=== PATIENT | female | born 1995 | race Hispanic/Latino ===

== ENCOUNTER 2018-02-24 11:09 | Outpatient (CLI) | payer SELFPAY ==
[2018-02-24 12:31] LABS: APPEARANCE, URINE CLOUDY (CLEAR); BACTERIA, URINE AUTO 1+ (NEGATIVE); BILIRUBIN, URINE AUTO NEGATIVE (NEGATIVE); BLOOD, URINE BLOOD 3+ (NEGATIVE); COLOR, URINE YELLOW (YELLOW); GLUCOSE, URINE (UA) AUTO NEGATIVE (NEGATIVE); KETONE, URINE AUTO NEGATIVE (NEGATIVE); LEUKOCYTE ESTERASE, URINE AUTO 3+ (NEGATIVE); MUCUS, URINE SMALL (NEGATIVE); NITRITE, URINE AUTO NEGATIVE (NEGATIVE); PROTEIN, URINE AUTO 1+ mg/dL (NEGATIVE); RBC, URINE AUTO TNTC /HPF (0-3); SQUAMOUS EPITHELIAL CELL UR AU 0 /HPF (0-6); UROBILINOGEN, URINE AUTO 0.2 mg/dL (0.0-2.0); WBC, URINE AUTO TNTC /HPF (0-3)
[2018-02-24] MEDS ORDERED: LR 1,000 ML IV (13:00)
[2018-02-24] MEDS: NITROFURANTOIN (MACROBID) 100 MG CAP PO (13:49)
[2018-02-24] MEDS: LR 1,000 ML IV (13:49)
== END 2018-02-24 14:05 | disposition home or self-care (01) ==
LOC: M LDO 11:09
DX: O99.89 Other specified diseases and conditions complicating pregnancy, childbirth and the puerperium (principal); Z3A.26 26 weeks gestation of pregnancy; O23.42 Unspecified infection of urinary tract in pregnancy, second trimester
CPT/HCPCS: 59025

== ENCOUNTER 2018-05-22 04:06 | Inpatient (IN) | payer OTHER ==
[2018-05-22 05:35] LABS: HEMATOCRIT 31.9 % (36.0-47.0); HEMOGLOBIN 11.2 g/dl (12.0-15.5); MEAN CORPUSCULAR HEMOGLOBIN 30.8 pg (27.0-33.0); MEAN CORPUSCULAR HGB CONC 35.1 g/dl (32.0-36.5); MEAN CORPUSCULAR VOLUME 87.6 fl (80.0-96.0); PLATELET COUNT, AUTOMATED 107 10^3/uL (150-450); RED BLOOD COUNT 3.64 10^6/uL (4.00-5.40); RED CELL DISTRIBUTION WIDTH 13.2 % (11.5-14.5); WHITE BLOOD COUNT 8.5 10^3/uL (4.0-10.0)
[2018-05-22 05:45] LABS: CREATININE,RANDOM URINE 35.8 MG/DL
[2018-05-22 05:58] LABS: ALT/SGPT 19 U/L (12-78); AST/SGOT 19 U/L (7-37); BILIRUBIN,TOTAL 0.5 MG/DL (0.2-1.0); CREATININE FOR GFR 0.53 MG/DL (0.55-1.30); GLOMERULAR FILTRATION RATE > 60.0 (>60); LDH LACTATE DEHYDROGENASE 171 U/L (84-246); URIC ACID 4.2 MG/DL (2.6-6.0)
[2018-05-22] MEDS ORDERED: MAGNESIUM *L&D* 4 GM/100 ML BAG (40MG/ML) (J3475) As Ordered (06:35)
[2018-05-22] MEDS ORDERED: MAGNESIUM SULFATE 4% INJ 20GM/500ML (40MG/ML) (J3475) As Ordered (06:35)
[2018-05-22] MEDS: LACTATED RINGER'S 1000 ML IV (06:45)
[2018-05-22] MEDS: MAGNESIUM *L&D* 4 GM/100 ML BAG (40MG/ML) (J3475) IV (06:48)
[2018-05-22] MEDS: MAG Sulf (OBGYN) 20GM/500ML 20,000 MG in APPROPRIATE DILUENT 1 EA IV ×2 (07:11→16:17)
[2018-05-22] MEDS: OXYTOCIN DRIP 30 UNITS in APPROPRIATE DILUENT 1 EA IV ×2 (07:20→21:38)
[2018-05-22] MEDS: LR 1,000 ML IV (14:58)
[2018-05-22] MEDS: NALBUPHINE HCL 10 MG/ML AMP (J2300) IV (16:10)
[2018-05-22] MEDS: PROMETHAZINE INJ 25 MG/ML VIAL (J2550) IV (16:10)
[2018-05-22] MEDS: NALBUPHINE HCL 10 MG/ML AMP (J2300) IM (16:11)
[2018-05-22] MEDS ORDERED: OXYTOCIN 30 UNITS IN 0.9% NaCl 500ML IV BAG (J2590) As Ordered (21:39)
[2018-05-22] MEDS: LIDOCAINE 1% MDV 20ML VIAL INFIL (21:45)
[2018-05-22] MEDS ORDERED: DIBUCAINE 1% OINTMENT 30GM TOP (21:45)
[2018-05-22] MEDS ORDERED: CALCIUM GLUCONATE 1,000 MG in D5W MINI-BAG PLUS 100 ML IV (21:45)
[2018-05-22] MEDS ORDERED: RHOGAM 300 MCG (1500 IU) INJ (J2790) IM (21:45)
[2018-05-22] MEDS ORDERED: MEASLES,MUMPS,RUBELLA VACCINE INJ (MMR-II) (90707) SC (21:45)
[2018-05-22] MEDS ORDERED: METOCLOPRAMIDE INJ 10MG/2ML VIAL (J2765) IV (21:45)
[2018-05-22] MEDS ORDERED: ACETAMINOPHEN TAB 650MG DOSE (2X325MG) PO (21:45)
[2018-05-22 22:31] LABS: HEMATOCRIT 33.4 % (36.0-47.0); HEMOGLOBIN 11.3 g/dl (12.0-15.5); MEAN CORPUSCULAR HEMOGLOBIN 30.6 pg (27.0-33.0); MEAN CORPUSCULAR HGB CONC 33.8 g/dl (32.0-36.5); MEAN CORPUSCULAR VOLUME 90.5 fl (80.0-96.0); PLATELET COUNT, AUTOMATED 115 10^3/uL (150-450); RED BLOOD COUNT 3.69 10^6/uL (4.00-5.40); RED CELL DISTRIBUTION WIDTH 13.4 % (11.5-14.5); WHITE BLOOD COUNT 14.6 10^3/uL (4.0-10.0)
[2018-05-23] MEDS: MAG Sulf (OBGYN) 20GM/500ML 20,000 MG in APPROPRIATE DILUENT 1 EA IV ×3 (03:17→15:28)
[2018-05-23] MEDS: OXYTOCIN DRIP 30 UNITS in APPROPRIATE DILUENT 1 EA IV (04:09)
[2018-05-23] MEDS: PRENATAL VITAMINS CHEWABLE TABLET PO (09:00)
[2018-05-23] MEDS: DOCUSATE SODIUM 100 MG CAP PO ×2 (09:00→23:07)
[2018-05-23 10:36] LABS: HEMATOCRIT 28.1 % (36.0-47.0); HEMOGLOBIN 9.7 g/dl (12.0-15.5); MEAN CORPUSCULAR HEMOGLOBIN 30.9 pg (27.0-33.0); MEAN CORPUSCULAR HGB CONC 34.5 g/dl (32.0-36.5); MEAN CORPUSCULAR VOLUME 89.5 fl (80.0-96.0); PLATELET COUNT, AUTOMATED 122 10^3/uL (150-450); RED BLOOD COUNT 3.14 10^6/uL (4.00-5.40); RED CELL DISTRIBUTION WIDTH 13.6 % (11.5-14.5); WHITE BLOOD COUNT 12.3 10^3/uL (4.0-10.0)
[2018-05-23 10:55] LABS: ALBUMIN 1.8 GM/DL (3.2-5.2); ALKALINE PHOSPHATASE 201 U/L (45-117); ALT/SGPT 19 U/L (12-78); ANION GAP 11 MEQ/L (8-16); AST/SGOT 28 U/L (7-37); BILIRUBIN,TOTAL 0.4 MG/DL (0.2-1.0); BLOOD UREA NITROGEN 10 MG/DL (7-18); CALCIUM LEVEL 6.9 MG/DL (8.5-10.1); CARBON DIOXIDE LEVEL 22 MEQ/L (21-32); CHLORIDE LEVEL 108 MEQ/L (98-107); CREATININE FOR GFR 0.84 MG/DL (0.55-1.30); GLUCOSE, FASTING 108 MG/DL (70-100); POTASSIUM SERUM 3.7 MEQ/L (3.5-5.1); SODIUM LEVEL 141 MEQ/L (136-145); TOTAL PROTEIN 4.8 GM/DL (6.4-8.2)
[2018-05-23 11:02] LABS: GLOMERULAR FILTRATION RATE > 60.0 (>60)
[2018-05-23 11:03] LABS: MAGNESIUM LEVEL 6.8 MG/DL (1.8-2.4)
[2018-05-23] MEDS: LR 1,000 ML IV (12:01)
[2018-05-23 22:13] LABS: ALBUMIN 1.7 GM/DL (3.2-5.2); ALBUMIN/GLOBULIN RATIO 0.53 (1.00-1.93); ALKALINE PHOSPHATASE 181 U/L (45-117); ALT/SGPT 17 U/L (12-78); ANION GAP 7 MEQ/L (8-16); AST/SGOT 22 U/L (7-37); BILIRUBIN,TOTAL 0.2 MG/DL (0.2-1.0); BLOOD UREA NITROGEN 12 MG/DL (7-18); CALCIUM LEVEL 7.4 MG/DL (8.5-10.1); CARBON DIOXIDE LEVEL 27 MEQ/L (21-32); CHLORIDE LEVEL 110 MEQ/L (98-107); CREATININE FOR GFR 0.74 MG/DL (0.55-1.30); GLOMERULAR FILTRATION RATE > 60.0 (>60); GLUCOSE, FASTING 93 MG/DL (70-100); POTASSIUM SERUM 3.6 MEQ/L (3.5-5.1); SODIUM LEVEL 144 MEQ/L (136-145); TOTAL PROTEIN 4.9 GM/DL (6.4-8.2)
[2018-05-23] MEDS: IBUPROFEN 800 MG TAB PO (23:06)
[2018-05-24 07:02] LABS: HEMATOCRIT 26.3 % (36.0-47.0); HEMOGLOBIN 8.9 g/dl (12.0-15.5); MEAN CORPUSCULAR HEMOGLOBIN 31.3 pg (27.0-33.0); MEAN CORPUSCULAR HGB CONC 33.8 g/dl (32.0-36.5); MEAN CORPUSCULAR VOLUME 92.6 fl (80.0-96.0); PLATELET COUNT, AUTOMATED 105 10^3/uL (150-450); RED BLOOD COUNT 2.84 10^6/uL (4.00-5.40); WHITE BLOOD COUNT 8.9 10^3/uL (4.0-10.0)
[2018-05-24 07:29] LABS: ALBUMIN 1.7 GM/DL (3.2-5.2); ALBUMIN/GLOBULIN RATIO 0.59 (1.00-1.93); ALKALINE PHOSPHATASE 179 U/L (45-117); ALT/SGPT 18 U/L (12-78); ANION GAP 7 MEQ/L (8-16); AST/SGOT 22 U/L (7-37); BILIRUBIN,TOTAL 0.3 MG/DL (0.2-1.0); BLOOD UREA NITROGEN 14 MG/DL (7-18); CALCIUM LEVEL 7.5 MG/DL (8.5-10.1); CARBON DIOXIDE LEVEL 27 MEQ/L (21-32); CHLORIDE LEVEL 110 MEQ/L (98-107); CREATININE FOR GFR 0.76 MG/DL (0.55-1.30); GLOMERULAR FILTRATION RATE > 60.0 (>60); GLUCOSE, FASTING 81 MG/DL (70-100); SODIUM LEVEL 144 MEQ/L (136-145); TOTAL PROTEIN 4.6 GM/DL (6.4-8.2)
[2018-05-24] MEDS: PRENATAL VITAMINS CHEWABLE TABLET PO (09:00)
[2018-05-24] MEDS: DOCUSATE SODIUM 100 MG CAP PO ×2 (09:00→19:46)
[2018-05-25] MEDS: DOCUSATE SODIUM 100 MG CAP PO (09:39)
[2018-05-25] MEDS: PRENATAL VITAMINS CHEWABLE TABLET PO (09:39)
== END 2018-05-25 13:30 | disposition home or self-care (01) | DRG 774 ==
LOC: M LDO 04:06 → M OBS 05-24 09:45 → M LDI 06:12
PROVIDERS: Obstetrics & Gynecology
PROC: 0W8NXZZ Division of Female Perineum, External Approach (ICD-10-PCS; principal; 2018-05-22)
PROC: 3E033VJ Introduction of Other Hormone into Peripheral Vein, Percutaneous Approach (ICD-10-PCS; 2018-05-22)
DX: O14.94 Unspecified pre-eclampsia, complicating childbirth (principal); O98.42 Viral hepatitis complicating childbirth; B19.10 Unspecified viral hepatitis B without hepatic coma; O99.12 Other diseases of the blood and blood-forming organs and certain disorders involving the immune mechanism complicating childbirth; Z37.0 Single live birth; Z3A.38 38 weeks gestation of pregnancy; D69.6 Thrombocytopenia, unspecified; R01.1 Cardiac murmur, unspecified

== ENCOUNTER 2018-12-21 12:05 | Emergency (ER) | payer OTHER ==
[~2018-12-21] VITALS: Ht 157.5 cm; Wt 76.8 kg
[~2018-12-21 12:05] MED LIST: COLA100C5 PO; IBUP-1114 PO; MAPA500T2 PO; PRENTAB9 PO
[2018-12-21] MEDS ORDERED: ONDANSETRON 4 MG ORAL DISINTEGRATING TAB (Q0162 PER 1MG) PO ONE (14:00)
[2018-12-21 14:57] VITALS: BP 110/59
== END 2018-12-21 15:01 | disposition home or self-care (01) ==
LOC: M ED 12:05
DX: A08.4 Viral intestinal infection, unspecified (principal)
CPT/HCPCS: 99283; Q0162